=== PATIENT | female | born 1965 | race Caucasian/White ===

== ENCOUNTER 2017-10-01 12:14 | Emergency (ER) | payer OTHER ==
[2017-10-01 12:27] VITALS: BP 167/97; PULSE 87; TEMP 98.3; BMI 26.4
[2017-10-01] MEDS ORDERED: ACETAMINOPHEN 325 MG TABLET (FP) PO ONE (13:21)
--- NOTE | 2017-10-01 13:21 | PDOC ---
History of Present Illness - General Chief Complaint: Chest Pain Stated Complaint: CHEST PAIN Time Seen by Provider: 10/01/17 13:13 History Source: Patient - History of Present Illness Presenting Symptoms: Chest Pain Timing/Duration: reports: constant, changing over time Past History - Past Medical History Allergies/Adverse Reactions: Allergies Allergy/AdvReac Type Severity Reaction Status Date / Time No Known Allergies Allergy Verified 10/01/17 12:27 Home Medications: Ambulatory Orders Escitalopram Oxalate [Lexapro -] 5 mg PO HS 10/01/17 COPD: No HTN: Yes (not on meds) Psychiatric Problems: (hot flashes) - Suicide/Smoking/Psychosocial Hx Smoking History: Never smoked Information on smoking cessation initiated: No Hx Alcohol Use: No Drug/Substance Use Hx: No Substance Use Type: None Review of Systems - Review of Systems Constitutional: No: Chills, Fever Respiratory: No: Shortness of Breath Cardiac (ROS): Yes: Chest Pain. No: Lightheadedness, Palpitations, Syncope Neurological: No: Dizziness *Physical Exam - Vital Signs Last Vital Signs Temp Pulse Resp BP Pulse Ox 98.3 F 87 18 167/97 99 10/01/17 12:25 10/01/17 12:25 10/01/17 12:25 10/01/17 12:25 10/01/17 12:25 - Physical Exam General Appearance: Yes: Appropriately Dressed. No: Apparent Distress HEENT: positive: Normal Voice Neck: positive: Supple Respiratory/Chest: positive: Lungs Clear, Normal Breath Sounds. negative: Respiratory Distress Cardiovascular: positive: Regular Rate, S1, S2 Gastrointestinal/Abdominal: positive: Soft. negative: Tender Integumentary: positive: Dry, Warm, Ecchymosis Neurologic: positive: Fully Oriented, Alert, Normal Mood/Affect, Motor Strength 5/5 Heart Score/ECG Review - History History: Slightly suspicious - Electrocardiogram EKG: Normal - Age Age: 45-65 - Risk Factors Based on the list above the patient has:: No risk factors known - Troponin Troponin: </= normal limit - Score Heart Score - Total: 1 - ECG Intrepretation Comment:: 10/01/17 13:25 Twelve-lead EKG was performed and reviewed by me. There is normal sinus rhythm with a normal rate. The axis is normal. The intervals are normal. There are no ST or T wave abnormalities. Impression: Normal twelve-lead EKG ED Treatment Course - LABORATORY CBC & Chemistry Diagram: 10/01/17 14:15 10/01/17 14:15 - ADDITIONAL ORDERS Additional order review: Laboratory Results 10/01/17 14:15 Sodium 142 Potassium 4.0 Chloride 106 Carbon Dioxide 29 Anion Gap 7 L BUN 15 Creatinine 0.8 Creat Clearance w eGFR > 60 Random Glucose 98 Calcium 9.2 Total Bilirubin 0.3 D AST 24 ALT 33 Alkaline Phosphatase 168 H Creatine Kinase 254 H Troponin I < 0.02 Total Protein 6.8 Albumin 3.7 10/01/17 14:15 RBC 4.44 MCV 89.4 MCHC 34.1 RDW 13.3 MPV 8.3 Neutrophils % 55.7 Lymphocytes % 34.0 D Monocytes % 9.0 Eosinophils % 0.8 Basophils % 0.5 - RADIOLOGY Radiology Studies Ordered: Category Date Time Status CHEST X-RAY PORTABLE* [RAD] Stat Radiology 10/01/17 13:18 Taken - Medications Given in the ED: ED Medications Discontinued Medications Generic Name Dose Route Start Last Admin Trade Name Freq PRN Reason Stop Dose Admin Acetaminophen 650 mg 10/01/17 13:21 10/01/17 13:26 Tylenol - PO 10/01/17 13:22 650 mg ONCE ONE Administration Medical Decision Making - Medical Decision Making 10/01/17 13:18 52-year-old female, approximately [id number] history, here with chest pain. Patient reports left-sided, non-radiating chest pressure that started an hour or 2 ago while at work. Has been mostly constant but has since improved with no exacerbating or alleviating factors. No shortness of breath, diaphoresis, nausea, vomiting, palpitations, leg pain or swelling. No history of similar pain in the past. No cardiac history and no recent cardiac workup. No obvious risk factors for DVT, PE. Patient also complaining of mild head pressure See exam CP Not great story for ACS Stable and well iliana w/ unremarkable exam EKG done at triage and unremarkable -Given low heart score, can m/l be r/o w/ serial trops 10/01/17 15:15 EKG and 1dt trop negative. Pt requesting to leave. States she does not want to wait for rpt trop in 6 hrs as she has to go accompany her mother to radiation therapy. Pt informed of medical risks and was able to verbalize understanding. Appears to have capacity. AMA formed signed. States she will go see her PMD in the am *DC/Admit/Observation/Transfer Diagnosis at time of Disposition: Chest pain Qualifiers: Chest pain type: unspecified Qualified Code(s): R07.9 - Chest pain, unspecified - Discharge Dispostion Disposition: AGAINST MEDICAL ADVICE Condition at time of disposition: Stable - Referrals Referrals: Aidee Argueta MD [Primary Care Provider] - - Patient Instructions Printed Discharge Instructions: DI for Atypical Chest Pain Additional Instructions: You you have chosen to sign out AGAINST MEDICAL ADVICE prior to completion of evaluation for your chest pain. Please be aware that you can return to ER at any point to continue evaluation. Please follow-up with your primary doctor this week. - Post Discharge Activity
[2017-10-01] MEDS ORDERED: ACETAMINOPHEN 325 MG TABLET (FP) ONE (13:23)
[2017-10-01 14:23] LABS: BASOPHIL 0.5 % (0-2.0); EOSINOPHIL 0.8 % (0-4.5); MCH 30.5 pg (25.7-33.7); MCHC 34.1 g/dl (32.0-36.0); MEAN CELL VOLUME 89.4 fl (80-96); MEAN PLT VOLUME 8.3 fl (7.5-11.1); NEUTROPHILS 55.7 % (42.8-82.8); PLATELET COUNT 232 K/MM3 (134-434); RDW 13.3 % (11.6-15.6); WHITE BLOOD COUNT 8.5 K/mm3 (4.0-10.0)
[2017-10-01 14:53] LABS: ALBUMIN 3.7 g/dl (3.4-5.0); ANION GAP 7 (8-16); BILIRUBIN,TOTAL 0.3 mg/dL (0.2-1.0); CALCIUM 9.2 mg/dL (8.5-10.1); CO2 29 mmol/L (21-32); CREATININE 0.8 mg/dL (0.55-1.02); GLUCOSE,RANDOM 98 mg/dL (74-106); SGOT/AST 24 U/L (15-37); SGPT/ALT 33 U/L (12-78); TOT PROT 6.8 g/dl (6.4-8.2)
[2017-10-01 14:56] LABS: ALK PHOS 168 U/L (45-117); CPK 254 IU/L (26-192); TROPONIN I < 0.02 ng/ml (0.00-0.05)
--- NOTE | 2017-10-02 10:24 | EKG ---
Test Reason : Blood Pressure : / mmHG Vent. Rate : 085 BPM Atrial Rate : 085 BPM P-R Int : 118 ms QRS Dur : 074 ms QT Int : 336 ms P-R-T Axes : 042 024 -17 degrees QTc Int : 399 ms NORMAL SINUS RHYTHM NONSPECIFIC ST AND T WAVE ABNORMALITY ABNORMAL ECG NO PREVIOUS ECGS AVAILABLE Confirmed by KALI BETH MD ([id number]) on 10/02/2017 10:23:33 AM Referred By: Confirmed By:KALI BETH MD
== END 2017-10-01 15:16 | disposition left against medical advice (07) ==
LOC: JER 12:14
DX: R07.89 Other chest pain (principal)
CPT/HCPCS: 36415; 71010-TC; 80053; 82550; 82553; 84484; 85025; 93005; 93010; 99283-25

== ENCOUNTER 2021-01-20 09:31 | Emergency (ER) | payer OTHER ==
[2021-01-20 09:35] VITALS: TEMP 97.9; BMI 29.4
[2021-01-20] MEDS ORDERED: ASPIRIN 81 MG CHEWABLE TABLETS PO ONE (10:19)
[2021-01-20] MEDS ORDERED: ASPIRIN 81 MG CHEWABLE TABLETS ONE (10:43)
[2021-01-20 10:51] LABS: BASO % 0.4 % (0-2.0); EOS % 0.8 % (0-4.5); HEMATOCRIT 41.3 % (32.4-45.2); HEMOGLOBIN 14.2 GM/dL (10.7-15.3); MCH 30.6 pg (25.7-33.7); MCHC 34.2 g/dl (32.0-36.0); MEAN CELL VOLUME 89.5 fl (80-96); MEAN PLT VOLUME 8.6 fl (7.5-11.1); MONO % 9.6 % (3.8-10.2); NEUT % 59.2 % (42.8-82.8); PLATELET COUNT 262 K/MM3 (134-434); RBC 4.62 M/mm3 (3.60-5.2); RDW 13.5 % (11.6-15.6); WHITE BLOOD COUNT 9.3 K/mm3 (4.0-10.0)
[2021-01-20 11:06] LABS: CHLORIDE 107 mmol/L (98-107); POTASSIUM 3.8 mmol/L (3.5-5.1); SODIUM 138 mmol/L (136-145)
[2021-01-20 11:08] LABS: CALCIUM 9.4 mg/dL (8.5-10.1)
[2021-01-20 11:09] LABS: ALBUMIN 3.6 g/dl (3.4-5.0); ANION GAP 2 MMOL/L (8-16); BLOOD UREA NITROGEN 15.5 mg/dL (7-18); CO2 30 mmol/L (21-32); GLUCOSE,RANDOM 99 mg/dL (74-106)
[2021-01-20 11:12] LABS: CREATININE 0.8 mg/dL (0.55-1.3); SGOT/AST 27 U/L (15-37); SGPT/ALT 47 U/L (13-61)
[2021-01-20 11:13] LABS: BILIRUBIN,TOTAL 0.5 mg/dL (0.2-1); TOT PROT 7.1 g/dl (6.4-8.2)
[2021-01-20 11:15] LABS: ALK PHOS 206 U/L (45-117)
[2021-01-20 15:35] VITALS: BP 120/70; PULSE 74
== END 2021-01-20 15:30 | disposition home or self-care (01) ==
LOC: JER 09:31
DX: R07.9 Chest pain, unspecified (principal)
CPT/HCPCS: 36415; 71046-TC-FY; 80053; 84484; 85025; 93005; 93010; 99284-25

== ENCOUNTER 2021-01-28 11:50 | Day surgery (SDC) | payer OTHER ==
[2021-01-26 15:17] VITALS: BMI 29.1
[2021-01-28 15:12] VITALS: TEMP 97.8
[2021-01-28 15:37] VITALS: BP 110/75; PULSE 76
== END 2021-01-28 16:15 | disposition home or self-care (01) ==
LOC: FASU-ENDO 11:50
PROVIDERS: ATTEND Internal Medicine Gastroenterology
PROC: 0DB68ZX Excision of Stomach, Via Natural or Artificial Opening Endoscopic, Diagnostic (ICD-10-PCS; 2021-01-28)
PROC: 0DB48ZX Excision of Esophagogastric Junction, Via Natural or Artificial Opening Endoscopic, Diagnostic (ICD-10-PCS; 2021-01-28)
PROC: 0DB98ZX Excision of Duodenum, Via Natural or Artificial Opening Endoscopic, Diagnostic (ICD-10-PCS; principal; 2021-01-28 14:41)
DX: K29.70 Gastritis, unspecified, without bleeding (principal); K44.9 Diaphragmatic hernia without obstruction or gangrene; K29.80 Duodenitis without bleeding; K22.8 Other specified diseases of esophagus
CPT/HCPCS: 88305-TC; 88342-TC

== ENCOUNTER 2021-04-29 12:22 | Day surgery (SDC) | payer OTHER ==
[2021-04-29 07:52] VITALS: BMI 29.1
[2021-04-29] MEDS ORDERED: PROPOFOL 20 ML ONE ×3 (12:47)
[2021-04-29 14:41] VITALS: BP 108/67; PULSE 76; TEMP 97.3
== END 2021-04-29 14:41 | disposition home or self-care (01) ==
LOC: FASU-ENDO 12:22
PROVIDERS: ATTEND Internal Medicine Gastroenterology
PROC: 0DBN8ZX Excision of Sigmoid Colon, Via Natural or Artificial Opening Endoscopic, Diagnostic (ICD-10-PCS; principal; 2021-04-29 13:13)
DX: Z86.010 Personal history of colon polyps (principal); D12.5 Benign neoplasm of sigmoid colon; D12.7 Benign neoplasm of rectosigmoid junction; K64.0 First degree hemorrhoids; K57.30 Diverticulosis of large intestine without perforation or abscess without bleeding
CPT/HCPCS: 88305-TC

== ENCOUNTER 2022-07-13 16:42 | Emergency (ER) | payer OTHER ==
[2022-07-13 16:48] VITALS: BP 123/69; PULSE 77; RESP 18; TEMP 98; BMI 29.9
[2022-07-13] MEDS ORDERED: ACETAMINOPHEN 1000 MG/100 ML BAG IVPB ONE (17:22)
[2022-07-13] MEDS ORDERED: ACETAMINOPHEN INJECTION 100 ML IVPB ONE (17:40)
[2022-07-13] MEDS ORDERED: METOCLOPRAMIDE HCL INJECTION 10 MG/2 ML VIAL IVPUSH ONE (17:42)
[2022-07-13] MEDS ORDERED: SODIUM CHLORIDE 0.9% 1000 ML INFUS.BAG IV ONE (17:42)
[2022-07-13] MEDS ORDERED: METOCLOPRAMIDE HCL INJECTION 10 MG/2 ML VIAL ONE (17:42)
[2022-07-13 18:06] LABS: BASO % 0.5 % (0-2.0); EOS % 1.4 % (0-4.5); HEMATOCRIT 37.9 % (32.4-45.2); LYMPH % 38.7 % (8-40); MCH 30.3 pg (25.7-33.7); MCHC 34.3 g/dl (32.0-36.0); MEAN CELL VOLUME 88.2 fl (80-96); MEAN PLT VOLUME 8.2 fl (7.5-11.1); MONO % 11.6 % (3.8-10.2); NEUT % 47.8 % (42.8-82.8); PLATELET COUNT 326 10^3/uL (134-434); RBC 4.29 M/mm3 (3.60-5.2); RDW 12.7 % (11.6-15.6); WHITE BLOOD COUNT 8.7 K/mm3 (4.0-10.0)
[2022-07-13 18:13] LABS: INR 0.93 (0.83-1.09); PROTHROMBIN TIME (PATIENT) 10.7 SEC (9.7-13.0)
[2022-07-13 18:16] LABS: ACTIVATED PTT 28.2 SECONDS (25.2-36.5)
[2022-07-13 18:28] LABS: CHLORIDE 110 mmol/L (98-107); SODIUM 142 mmol/L (136-145)
[2022-07-13 18:30] LABS: ALBUMIN 3.4 g/dl (3.4-5.0); CALCIUM 8.5 mg/dL (8.5-10.1)
[2022-07-13 18:31] LABS: ANION GAP 8 MMOL/L (8-16); BLOOD UREA NITROGEN 13.7 mg/dL (7-18); CO2 24 mmol/L (21-32); GLUCOSE,RANDOM 119 mg/dL (74-106)
[2022-07-13 18:33] LABS: CREATININE 0.8 mg/dL (0.55-1.3)
[2022-07-13 18:34] LABS: SGOT/AST 25 U/L (15-37); SGPT/ALT 36 U/L (13-61)
[2022-07-13 18:35] LABS: BILIRUBIN,TOTAL 0.3 mg/dL (0.2-1); TOT PROT 6.6 g/dl (6.4-8.2)
[2022-07-13 18:37] LABS: ALK PHOS 186 U/L (45-117)
== END 2022-07-13 22:07 | disposition home or self-care (01) ==
LOC: JER 16:42
PROC: 3E0333Z Introduction of Anti-inflammatory into Peripheral Vein, Percutaneous Approach (ICD-10-PCS; principal; 2022-07-13)
PROC: 3E033GC Introduction of Other Therapeutic Substance into Peripheral Vein, Percutaneous Approach (ICD-10-PCS; 2022-07-13)
DX: U07.1 COVID-19 (principal); R06.02 Shortness of breath
CPT/HCPCS: 0241U-QW; 36415; 71045-TC-FY; 71275-TC; 80053; 84484; 85025; 85610; 85730; 93005; 93010; 99285-25; Q9967

== ENCOUNTER 2024-03-08 12:43 | Emergency (ER) | payer OTHER ==
[2024-03-08 12:54] VITALS: BP 118/75; PULSE 78; RESP 18; TEMP 98.3; BMI 29.9
[2024-03-08] MEDS ORDERED: ALBUTEROL SO4 2.5/IPRATROPIUM 0.5 INH SOL 3 ML VIAL.NEB. NEB ONE (13:34)
[2024-03-08] MEDS: ALBUTEROL SO4 2.5/IPRATROPIUM 0.5 INH SOL 3 ML VIAL.NEB. NEB ONE (13:38)
== END 2024-03-08 13:57 | disposition home or self-care (01) ==
LOC: JERFT 12:43
PROC: 3E0F7GC Introduction of Other Therapeutic Substance into Respiratory Tract, Via Natural or Artificial Opening (ICD-10-PCS; principal; 2024-03-08)
DX: R05.1 Acute cough (principal); J06.9 Acute upper respiratory infection, unspecified; R06.2 Wheezing
CPT/HCPCS: 99283-25